=== PATIENT | male | born 2005 | race Caucasian/White ===

== ENCOUNTER 2023-08-22 15:21 | Emergency (ER) | payer SELFPAY | END 2023-08-22 15:44 | disposition left against medical advice (07) | PROVIDERS: Emergency Provider Emergency Medicine | DX: M79.603 Pain in arm, unspecified (principal) ==

== ENCOUNTER 2023-12-08 09:29 | Emergency (ER) | payer OTHER, SELFPAY ==
--- NOTE | ~2023-12-08 | XR_ITS ---
EXAMINATION: XR HAND, LEFT CLINICAL INFORMATION: Crush injury COMPARISON: None available. TECHNIQUE: PA, lateral, and oblique views of the left hand. FINDINGS: The bones and soft tissues are normal. No fracture. Alignment is anatomic. Joint spaces are maintained. No erosions or soft tissue calcifications. XR/XR hand LT min 3V IMPRESSION: Normal left hand.
[2023-12-08 09:56] VITALS: BP 149/78; PULSE 73; RESP 16; TEMP 35.9; O2SAT 98; BMI 21.3
--- NOTE | 2023-12-08 10:32 | ED_ITS ---
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 After getting his thumb out, reports immediate pain to the tip of the left thumb/ nail. No active bleeding or open wound. Took tylenol at 0600 this morning. Denies fever, chills, rash, N/V, numbness/tingling/weakness of the extremity. Related Data Previous Rx's Medication Instructions Recorded acetaminophen 325 mg tablet 325 mg PO Q6H PRN pain (scale 12/08/23 (Tylenol) score 4-6) #30 tabs Allergies Allergy/AdvReac Type Severity Reaction Status Date / Time No Known Allergies Allergy Verified 12/08/23 10:00 Review of Systems 2 Review of Systems: Constitutional: No fever, chills, fatigue, night sweats, weight changes ENT/Mouth: No ear pain, hearing loss, nasal congestion, sinus pain, rhinorrhea, sore throat Eyes: No eye pain, swelling, redness, vision changes, discharge Cardio: No chest pain, palpitations, SAMSON, orthopnea, peripheral edema Pulm: No SOB, cough, sputum, wheezing, dyspnea, hemoptysis GI: No nausea, vomiting, hematemesis, abdominal pain, diarrhea, constipation, hematochezia, melena : No irregular bleeding, dysuria, frequency, urgency, hesitancy, hematuria, flank pain, urinary flow changes, urinary incontinence or retention MSK: No back pain, neck pain, joint pain, myalgias Skin: No lesions, rashes, +hematoma to left thumb Neuro: No weakness, numbness, paresthesias, LOC, dizziness, headache All other systems reviewed and are negative. [facility] Past Medical History Attestation statement: The following information was validated with the patient. Source: old records reviewed and nursing notes reviewed Onset Date is defined in the Problem List Problems that require an onset date and time if occurred within 24 hrs of arrival to the ED Aortic Dissection and Rupture; Neurologic impairment; Cardiopulmonary Arrest; Endotracheal Intubation; Insertion or Replacement of Mechanical Circulatory Assist Device Social History Social History Alcohol intake: current Alcohol type: beer Smoked in Last 30 Days: No Substance Use Type: Marijuana Substance Use Type Other:: nicotine vape. Substance Use Frequency Other:: daily nicotine, occasionally marijuana smoke Advance Directives: No Advance Directives Information Provided: No Physical Exam 2 Vital Signs: Vital Signs: Last Vital Signs Temp 98.3 F 12/08/23 12:00 Pulse 88 12/08/23 12:00 Resp 16 12/08/23 12:01 BP 120/68 12/08/23 12:00 Pulse Ox 98 12/08/23 12:00 O2 Del Method Room Air 12/08/23 12:00 BMI result Body Mass Index 21.3 Const: General: cooperative, no acute distress, alert and awake O rientation/consciousness: patient oriented x3 Limitations: no limitations Eyes: General: appearance normal, both eyes and all related structures Neck: Neck: Yes normal visual inspection Resp: Effort & Inspection: normal respiratory effort Auscultation: clear to auscultation bilaterally Cardio: Other: 2+ radial and ulnar pulses b/l. Rate: regular rate Rhythm: regular rhythm Skin: Other: + refer to photo below Neuro: General: patient oriented x3, gait normal and moves all extremities Extrem: Other: + refer to photo below Course Course Course Narrative: Performed nail trephination and was able to release blood from under the nail. Patient tolerated procedure well and immediately reported improvement in pain. 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 VSS. Nontoxic appearing and in NAD. Refer to photos above for PE findings. NV intact distally. ROM intact to mcp and dip of left thumb. Concern for subungal hematoma. Unlikely nail bed injury, fracture, dislocation, nv compromise, compartment syndrome, threat to limb. Plan for xrays. Differential Diagnosis Differential Diagnoses: The differential diagnosis associated with the presentation includes as above. Admission/Observation Not indicated. Independent Interpretation I performed an independent interpretation of an: Plain X-Ray Interpretation: I personally reviewed xray and agree with radiologist's interpretation. Radiology Impression Discussion of test interpretation with radiology: I have reviewed the radiologist's reading. Radiologist Impression: XR hand LT min 3V IMPRESSION: Normal left hand. Independent Historian Clinical information obtained from an independent historian. History obtained from or confirmed by: Friend External Record Review External record reviewed: Inpatient record Prescription Management I considered prescription management with: Pain Medication Procedures Nail Trephination Time out: Yes Location (finger): left and thumb Sterile prep: betadine Method of drainage: nail cautery Procedure successful: Yes Patient tolerated procedure: No Complications Critical Care Time Critical Care Time Critical Care Time: No Discharge Plan Discharge Clinical Impression: Hematoma, subungual, thumb, left Patient Disposition: Home, Self-Care Additional Instructions: The xrays of your left thumb were normal and do not show a fracture. The hematoma was drained today. You do not require antibiotics. You declined tetanus shot today. Continue taking tylenol at home for pain. Soak the finger in warm water to help draw out the rest of the blood. Your nail may fall off due to injury. You have been provided with a referral to [facility] as this is a work related injury. Also follow up with your primary care physician. If symptoms persist or worsen, return to the ED. In the case of an emergency, call 911. Prescriptions: New acetaminophen [Tylenol] 325 mg tablet 325 mg PO Q6H PRN (Reason: pain (scale score 4-6)) Qty: 30 0RF Rx Instructions: You may take up to 3 tablets at a time (975 mg total) for pain relief. Referrals: [facility] [Outside] Physician,None [Primary Care Provider] - Stand Alone Forms: Work/School Release Interventions: ED Discharge Assessment Last Done: 12/08/23 12:11 Discharge Date/Time: 12/08/23 12:10
[2023-12-08] MEDS: Ketorolac Tromethamine 60 MG/2 ML VIAL IM (11:05)
[2023-12-08 12:00] VITALS: BP 120/68; PULSE 88; RESP 16; TEMP 36.8; O2SAT 98
[2023-12-08] MEDS: Morphine Sulfate Immed Release 15 MG TABLET PO (12:00)
[2023-12-08 12:01] VITALS: RESP 16
== END 2023-12-08 12:10 | disposition home or self-care (01) ==
PROVIDERS: Emergency Provider Emergency Medicine
DX: S60.112A Contusion of left thumb with damage to nail, initial encounter (principal); W31.89XA Contact with other specified machinery, initial encounter; Y93.89 Activity, other specified; Y92.9 Unspecified place or not applicable; Y99.0 Civilian activity done for income or pay
CPT/HCPCS: 11740; 73130; 96372; 99284; J1885